=== PATIENT | female | born 1950 | race Caucasian/White ===

== ENCOUNTER 2017-12-27 05:14 | Observation (INO) ==
[2017-12-27] MEDS ORDERED: Heparin - SQ 10,000 UNITS/ML Vial SQ SCH (05:45)
[2017-12-27] MEDS ORDERED: Chlorhexidine Gluconate 2% 1 Pack (2 Cloths) TOPICAL SCH (05:45)
[2017-12-27] MEDS ORDERED: Metoprolol Tartrate 25 MG Tablet PO SCH (05:45)
[2017-12-27] MEDS ORDERED: Sodium Chlor 0.9% Inj 500 ML IV.SIG SCH (06:00)
[2017-12-27 06:37] LABS: Activated Partial Thrombo Time 26.8 sec (24.3-30.1); Prothrombin Time 10.6 sec (9.8-11.6)
[2017-12-27] MEDS ORDERED: Lidocaine 1%/Epinephrine 1:100,000 Inj 50 ML Vial ONE (07:40)
[2017-12-27] MEDS ORDERED: LORazepam 0.5 MG Tablet PO PRN (11:30)
[2017-12-27] MEDS ORDERED: *morphine SULFATE 4 MG/ML PERIprocedure ONLY ONE ×2 (11:54→12:05)
[2017-12-27] MEDS ORDERED: Glycopyrrolate Inj 1 MG/5 ML Syringe IV.PUSH ONE (12:00)
[2017-12-27] MEDS ORDERED: Lidocaine PF 1% Inj 5 ML Syringe INFILTRATN ONE (12:00)
[2017-12-27] MEDS ORDERED: Neostigmine Inj 5 MG/5 ML Syringe IV.PUSH ONE (12:00)
[2017-12-27] MEDS ORDERED: fentaNYL Citrate Inj 100 MCG/2 ML Ampul ONE (12:05)
[2017-12-27] MEDS ORDERED: Morphine Inj 4 MG/ML Vial ONE (12:06)
[2017-12-27] MEDS: KCL 20 mEq/D5W/NaCl 0.45% Inj 1,000 ML IV.CONT SCH ×2 (12:10→22:39)
[2017-12-27] MEDS ORDERED: HYDROmorphone PF Inj 2 MG/ML Vial ONE (12:13)
[2017-12-27] MEDS: Ketorolac Inj 30 MG/ML (IVP) Vial IV.PUSH SCH ×3 (12:35→23:37)
--- NOTE | 2017-12-27 15:19 | P.PNONC ---
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 with at bedside no complaints feels that pain in controlled reviewed restrictions once discharged post op orders in chart denies N/V ok to ADAT ok to OOB to chair this evening with assistance Objective Vital Signs/Intake & Output: Vital Signs 12/27/17 05:49 12/27/17 11:47 12/27/17 12:00 Temperature 98.1 F 97.4 F L Pulse Rate 64 66 59 L Respiratory Rate 20 18 17 Blood Pressure 128/64 115/54 L 113/57 L Pulse Oximetry 99 97 100 12/27/17 12:15 12/27/17 12:30 12/27/17 12:46 Temperature Pulse Rate 59 L 59 L 53 L Respiratory Rate 17 18 16 Blood Pressure 110/59 L 113/55 L 111/55 L Pulse Oximetry 100 98 97 12/27/17 13:22 Temperature 96.8 F L Pulse Rate 65 Respiratory Rate 17 Blood Pressure 103/58 L Pulse Oximetry 97 Intake & Output 12/26/17 12/27/17 12/27/17 18:59 06:59 18:59 Intake Total 2100 / 2100 Output Total 900 / 900 Balance 1200 / 1200 Weight 67.6 kg Intake: IV 1000 / 1000 LR 1000 mL Inj 1,000 ML @ 30 1000 / 1000 mls/hr IV.SIG .Q24H [facility] Rx#: [id number] Anesthesia Amount 1100 / 1100 Output: Urine 800 / 800 Estimated Blood Loss 100 / 100 Other: Weight On Admission 67.5 kg Laboratory Results: Laboratory Results - last 24 hr 12/27/17 12/27/17 05:34 05:35 PT 10.6 INR 1.0 APTT 26.8 Blood Type A Positive Blood Type Recheck Required Antibody Screen Negative Medications: Active Medications Generic Name Dose Route Start Last Admin Trade Name Freq PRN Reason Stop Dose Admin Chlorhexidine Gluconate 3 pack 12/27/17 05:45 12/27/17 06:24 Chlorhexidine 2% Cloth TOPICAL 12/30/17 05:38 3 pack [employer] TRACY Administration Heparin Sodium (Porcine) 5,000 units 12/27/17 05:45 12/27/17 06:25 Heparin Inj SQ 12/28/17 05:44 5,000 units [employer] TRACY Administration Lactated Ringer's 1,000 mls @ 30 mls/hr 12/27/17 05:45 12/27/17 11:16 Lr 1000 Ml Inj IV.SIG 12/30/17 05:38 Infused .Q24H TRACY Infusion Potassium Chloride/Dextrose/Sod Cl 1,000 mls @ 100 mls/hr 12/27/17 11:30 12:10 D5w/1/2ns + Kcl 20 Meq Inj IV.CONT 100 mls/hr .Q10H TRACY Administration Ketorolac Tromethamine 15 mg 12/27/17 12:00 12/27/17 12:35 Toradol Inj IV.PUSH 12/28/17 06:01 15 mg Q6HR TRACY Administration Povidone Iodine 1 applicatio 12/27/17 05:45 12/27/17 06:24 Betadine 5% Antisepsis Kit EACH NARE 12/30/17 05:38 1 applicatio SHIP'[employer] TRACY Administration Objective Remarks: GENERAL: Well-nourished, well-developed patient. SKIN: Warm and dry. HEAD: Normocephalic. EYES: No scleral icterus. No injection or drainage. NECK: Supple CARDIOVASCULAR: Regular rate and rhythm without murmurs. RESPIRATORY: Breath sounds equal bilaterally. No accessory muscle use. GASTROINTESTINAL: Abdomen soft, SS are c/d/i no s/s of drainage EXTREMITIES: teds and scds MUSCULOSKELETAL: Adequate muscle tone. NEUROLOGICAL: No obvious focal deficit. Awake, alert, and oriented x3. PSYCHIATRIC: Appropriate mood and affect; insight and judgment normal. Assessment/Plan - Plan s/p RA lap hyst with BSO and LN resection post op orders in chart OOB to chair this evening HILARY d/c mitra in am anticipate discharge home in the next 24 hours
[2017-12-27] MEDS ORDERED: Acetaminophen 500 MG Tablet PO PRN (16:39)
[2017-12-28] MEDS: Ketorolac Inj 30 MG/ML (IVP) Vial IV.PUSH SCH (05:29)
[2017-12-28 06:32] LABS: Baso % (Auto) 0.1 % (0.0-2.0); Eos % (Auto) 0.3 % (0.0-4.0); Hematocrit 35.3 % (35.0-46.0); Hemoglobin 11.7 gm/dL (11.6-15.3); Lymph # (Auto) 1.4 th/mm3 (1.0-4.8); Mean Corpuscular HGB Conc 33.2 % (32.0-36.0); Mean Corpuscular Hemoglobin 28.9 pg (27.0-34.0); Mean Platelet Volume 8.6 fL (7.0-11.0); Mono # (Auto) 0.6 th/mm3 (0.0-0.9); Mono % (Auto) 6.3 % (0.0-8.0); Neut % (Auto) 77.3 % (16.0-70.0); Platelet Count 229 th/mm3 (150-450); Red Blood Count 4.06 mil/mm3 (4.00-5.30); Red Cell Distribution Width 13.4 % (11.6-17.2)
[2017-12-28 06:54] LABS: Anion Gap 7 meq/L (5-15); Blood Urea Nitrogen 7 mg/dL (7-18); Calcium 8.8 mg/dL (8.5-10.1); Carbon Dioxide 26.5 meq/L (21.0-32.0); Chloride 105 meq/L (98-107); Glomerular Filtration Rate Greater Than 89 mL/min (>89); Glucose,Random 157 mg/dL (74-106); Potassium 4.2 meq/L (3.5-5.1); Sodium 138 meq/L (136-145)
--- NOTE | 2017-12-28 07:53 | MD ---
cc: Radha Lozano MD,Kristina Nathan,Anitra KLEIN DATE OF DISCHARGE: PROCEDURE: On 12/27/2017, robotic-assisted laparoscopic hysterectomy, bilateral salpingo-oophorectomy, bilateral pelvic lymphadenectomy. HOSPITAL COURSE: She did well in her early postoperative period. She remained hemodynamically stable. Tolerated oral intake. Ayers catheter removed pending voiding. Ins and outs 4300/3800. Hemoglobin 11. PHYSICAL EXAMINATION: VITAL SIGNS: Afebrile. Vital signs stable. GENERAL: Alert and oriented x 3. LUNGS: Clear. CARDIOVASCULAR: Regular rate and rhythm. ABDOMEN: Soft. Incisions clean and dry. GYNECOLOGIC: No bleeding. EXTREMITIES: Nontender. ASSESSMENT: Postoperative day number 1, findings at the time of surgery, steps taken and preliminary pathology are discussed. Activities and restrictions are reviewed. Questions were asked and answered. She expressed good understanding. PLAN: Anticipate she will reach criteria for discharge to home today. She is to resume her prior medication. She confirmed that she can take Tylenol containing products without problems and does not have any known reaction to tramadol and only has a SENSITIVITY TO VICODIN. She can take [id number] medications if preferred or as needed. She is to contact our office to schedule followup within 2 weeks or at anytime should there be questions or problems. We will review the final pathology and any further recommendations at the time of postop followup. MD JAGDISH Seymour/RAEGAN , 07:37 AM , 07:44 AM
[2017-12-28 08:12] VITALS: BP 118/55; PULSE 70; RESP 16; TEMP 97.7; O2SAT 98
[2017-12-28] MEDS: KCL 20 mEq/D5W/NaCl 0.45% Inj 1,000 ML IV.CONT SCH (08:26)
--- NOTE | 2017-12-28 08:42 | MP ---
cc: Radha Lozano MD,Kristina Nathan,Anitra KLEIN DATE OF OPERATION: 12/27/2017 PREOPERATIVE DIAGNOSIS: High grade endometrial cancer. POSTOPERATIVE DIAGNOSIS: 1. Grade endometrial cancer. 2. Extensive intraperitoneal and intrapelvic adhesions. 3. Significant diverticulosis. PROCEDURE PERFORMED: Robotic-assisted laparoscopic hysterectomy, bilateral salpingo-oophorectomy, bilateral pelvic lymphadenectomy, extensive lysis of adhesions. SURGEON: Radha Lozano MD DIESEL TRUCK CRANE OPERATOR: Leander first assist. ANESTHESIA: General endotracheal anesthesia. ESTIMATED BLOOD LOSS: 100 mL. IV FLUIDS: 2100 mL. URINE OUTPUT: 800 mL. HISTORY: A 67-year-old female who denies any symptoms. 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 Tissue biopsy showed high grade endometrial cancer with possible papillary serous features arising from the endometrium. PET scan shows a PET-avid signal and a prominent uterus without overt PET avid activity to suggest metastatic disease. She was counseled regarding these findings and presents in favor of surgical management. She is seen again in the preop holding area accompanied by her where the findings and plan of care are again discussed and reviewed. Questions were asked and answered. She expressed a good understanding and agreed to move forward with surgery. FINDINGS: Uterine cavity sounds to 10 cm. It is symmetrically enlarged. The tubes appeared to be status post tubal ligation, otherwise normal. Ovaries appeared normal. In the peritoneal cavity, there were no peritoneal implants. The liver diaphragm edges are smooth. The omentum grossly appears normal. Peritoneal surfaces are without implants or nodularity. The small bowel grossly appears normal. The appendix is surgically absent. There were fairly significant adhesions in the right lower quadrant in the region of the terminal ileum and cecum. There are extensive diverticula noted especially in the descending and sigmoid colon and there were adhesions of the bowel to the left pelvic sidewall, obliteration of the cul-de-sac and the adnexa adherent to the left pelvic sidewall suggestive of prior diverticulitis without evidence of active diverticulitis at this time. Preliminary pathology of the uterus showed there to be a large tumor at 4.8 cm with deep myometrial invasion estimating that the depth of invasion was at least 90-95% thickness of the myometrium. In the paraaortic and paracaval region, there were no prominent lymph nodes. No firm or irregular nodes; however, in the pelvis, there were some prominent lymph nodes in the obturator space bilaterally with a single prominent lymph node in the external iliac region bilaterally. STATEMENT OF COMPLEXITY/MODIFIER: The duration and complexity of this case was increased significantly due to extensive adhesions and the time required to lyse adhesions to gain safe access to the peritoneal cavity to restore normal anatomy and to accomplish surgical objectives. Modifier should be applied accordingly. DESCRIPTION OF PROCEDURE: She was taken to the operating room and placed in dorsal lithotomy position, after general endotracheal anesthesia was administered. A timeout was undertaken. She was identified by site recognition and hospital ID bracelet and the proposed procedure was reviewed and confirmed. She was carefully positioned in padded Balbir stirrups. Her arms were padded and secured to the sides. She was further secured to the operating table with egg crate padding and tape in a cross chest over the shoulder fashion. All sites noted to be properly aligned with no malalignments or pressure points. She was prepped and draped in a sterile fashion, placed in the lithotomy position. The cervix was grasped. The uterine cavity was sounded. Cervix was dilated. A moderate amount of bleeding was encountered. A large VCare manipulator was inserted and secured in usual fashion. Ayers catheter placed in the bladder. She was returned to the low lithotomy position. A change of sterile glove was undertaken. We confirmed that an orogastric tube was in the stomach on suction. We completed prepping and draping in anticipation of laparoscopy. With manual elevation of the abdominal wall and direct laparoscopic visualization, a 5 mm cannula was introduced into the peritoneal cavity. Carbon dioxide gas was insufflated and an atraumatic entry was confirmed. An 8 mm cannula placed in the right upper quadrant and sharp dissection was carried out to alleviate adhesions and free the sigmoid colon and terminal ileum from the right anterior lateral abdominal wall after which a 12 mm cannula was placed in the midline above the umbilicus, an 8 mm cannula was placed in the left upper quadrant and the original 5 mm cannula was exchanged for an 8 mm cannula. She was placed in Trendelenburg position. The anatomy was reviewed with findings as described above. Peritoneal washings were obtained for cytology. The small bowel was folded back on its mesenteric root and 3 Ray-Alex sponges were placed around the root of the small bowel mesentery. The robotic system was brought into the operative field, attached in the usual fashion. Monopolar scissors, fenestrated bipolar forceps and ProGrasp manipulators were placed in arms, number 1, 2, and 3 respectively and I took my place at the surgeon's console. The right round ligament, isolated, cauterized, transected. Anterior and posterior leafs of the broad ligament were opened. The right ureter was identified. The right infundibulopelvic ligament was isolated as the intervening peritoneum was opened. The infundibulopelvic ligament was isolated to the level of the pelvic brim where it was cauterized and transected. The posterior peritoneum opened along the right side of the uterus and cervix and the right vesicouterine peritoneum was dissected off the lower uterine segment and cervix. The right uterine vessels were skeletonized, cauterized and transected as were the cardinal, paracervical and the uterosacral ligaments thereby freeing the attachments along the right side of the uterus and cervix. Attention was directed toward the left side where additional lysis of adhesions was carried out to mobilize the colon and the pericolonic fat mesentery from its adjacent structures. Retroperitoneal dissection was carried out lateral and parallel to the gonadal vessels and then the descending colon was mobilized away from its attachments to the pelvic sidewall. Sharp dissection was used to free the adhesions from the cul-de-sac and to free the left tube and ovary from their dense attachments to the pelvic sidewall. The left round ligament was isolated, cauterized and transected. The anterior and posterior leafs of the broad ligament were further developed as the retroperitoneal dissection was extended until the left ureter was identified and the infundibulopelvic ligament was isolated. The intervening peritoneum was opened and the infundibulopelvic ligament was isolated to the level of the pelvic brim where it was cauterized and transected. Posterior peritoneum opened along the left side of the uterus and cervix and the left vesicouterine peritoneum was dissected off the lower uterine segment and cervix. The left uterine vessels were skeletonized, cauterized and transected as were the cardinal, paracervical and uterosacral ligaments thereby freeing the attachments along the left side of the uterus and cervix. Colpotomy was performed the cervix from the upper vagina. The specimen was withdrawn transvaginally which included uterus, cervix, tubes and ovaries and a pneumo-occluder balloon was placed in the vagina to maintain pneumoperitoneum. Instruments 1 and 3 exchanged for a needle delivery truck driver heavy as a 0 Vicryl suture was introduced. The vaginal cuff was closed starting at the left corner full-thickness closure incorporating uterosacral ligament, posterior peritoneum tied via instrument tie. The closure was held on countertraction as a running continuous full thickness closure was carried across the vaginal apex to the contralateral corner where it was similarly fixed, secured, tied and the needle was cut and removed. The bladder was inspected. The bladder wall was intact. There was a good margin between the edge of the bladder and the vaginal cuff suture line. The pelvis was thoroughly irrigated. Small bleeders rendered hemostatic with bipolar cautery. The frozen section came back showing extensive deeply invasive tumor and so the lymph node basins lens respectively with findings as described above. On the right side, the perivesical, perirectal and obturator spaces were developed. A single prominent lymph node in the mid external iliac region on the right was isolated and removed, placed on a Ray-Alex sponge in the right pericolic gutter for later retrieval. The obturator space was developed. The prominent lymph nodes ventral to the obturator nerve were isolated with bipolar cautery and sharp dissection and were removed and placed in the right pericolic gutter. There were no remaining visible or palpably enlarged lymphatics and the remaining lymphatic tissue was left in situ in an effort to reduce morbidity. Attention was directed toward the left side where similarly the retroperitoneal spaces of the paravesical obturator and perirectal spaces were developed. Lymphatic tissues were inspected in the distal left external iliac region and a single prominent lymph node was isolated and removed with bipolar cautery and sharp dissection and placed in the left pericolic gutter for later retrieval. The obturator space was developed and lymphatics were inspected. Some prominent lymph nodes ventral to the obturator nerve were isolated and removed using cautery and sharp dissection and placed on the left side for later retrieval. Visual inspection confirmed there were no remaining visible detectable lymph nodes and the remaining tissue was left in situ in an effort to reduce morbidity. The paraortic and pericaval areas were inspected, palpated with no prominent adenopathy detected and as per our preoperative discussion and agreement, it was felt that all reasonable surgical objectives had been completed. The pelvis was thoroughly irrigated. Small bleeders rendered hemostatic with bipolar cautery to assist and continued hemostatic. Hemostatic Ejferson powder was placed in the lateral pelvic sidewall dissection beds and across the vaginal cuff. All sites were hemostatic. The robotic instruments were removed. The robotic system was disengaged from the operative field. I reentered the bedside under sterile condition. An Endo Catch bag was used to capture first the right pelvic lymph nodes and then the left pelvic lymph nodes which were retrieved through the 12 mm fascial defect. Next, each of the 3 Ray-Alex sponges that were placed in the peritoneal cavity were removed, they were removed, individually. Each were inspected and noted to be removed in their entirety. There were no remaining foreign objects in the peritoneal cavity. Preliminary counts were correct. The 12 mm fascial defect was closed with interrupted 0 Vicryl sutures using a needle pass fascial closure apparatus. They were tied securely which rendered the fascia completely airtight and hemostatic. The remaining laparoscopic sites were closed with 3-0 Vicryl subcutaneous, 3-0 Vicryl subcuticular and Steri-Strips. She was placed in the dorsal lithotomy position. Pelvic exam confirmed the vaginal cuff was well-supported, hemostatic. The superficial mucosal irritations in the distal vagina were hemostatic after application of the remainder of the Jeferson hemostatic agent. There were no remaining foreign objects in the vagina and final counts were correct. She was returned to dorsal supine position and was pending reversal of anesthesia when I left the operating room to precede her to the postanesthesia care unit. MD JAGDISH Seymour/JODY , 07:52 AM , 08:14 AM
[2017-12-28] MEDS ORDERED: Levothyroxine 50 MCG Tablet PO SCH (09:00)
== END 2017-12-28 09:29 | disposition home or self-care (01) ==
LOC: HSDC 05:14 → HSDI 05:14 → HCIN 05:14
PROVIDERS: ADMIT Obstetrics & Gynecology Gynecologic Oncology; ATTEND Obstetrics & Gynecology Gynecologic Oncology